=== PATIENT | female | born 1950 | race Caucasian/White ===

== ENCOUNTER → 2021-03-21 | Outpatient (REF) | payer MEDICARE, OTHER ==
[2021-03-21 13:06] LABS: GC DNA AMPLIFICATION NEGATIVE (NEGATIVE)
== END ==
LOC: M LAB REF 11:03
PROVIDERS: ATTEND Registered Nurse
DX: R10.2 Pelvic and perineal pain (principal)

== ENCOUNTER → 2021-04-07 | Outpatient (CLI) | payer MEDICARE, OTHER ==
--- NOTE | 2021-04-07 16:40 | REP ---
INDICATION: VAGINAL DISCHARGE, PELVIS PAIN COMPARISON: None. TECHNIQUE: Transabdominal pelvic ultrasound followed by transvaginal examination for better evaluation of the endometrium and adnexa. FINDINGS: Bladder is unremarkable and measures 7.9 x 4.0 x 7.8 cm. Normal anteverted uterus measures 7.2 x 2.5 x 3.9 cm. The endometrial complex measures 2.6 mm thickness. No discrete uterine or endometrial abnormalities are appreciated. Left ovary is not visualized. Right ovary appears normal and measures 1.6 x 1.9 x 1.1 cm. No pelvic fluid or adnexal mass lesion identified. IMPRESSION: Relatively normal uterus and normal presumed right ovary. No free fluid or obvious abnormality appreciated. <Electronically signed by Dylan Munoz > 04/07/21 [id number]
== END ==
LOC: M RAD 15:50
PROVIDERS: ATTEND Registered Nurse
DX: R10.2 Pelvic and perineal pain (principal)

== ENCOUNTER → 2022-03-16 | Outpatient (CLI) | payer MEDICARE, OTHER ==
[~2022-03-16] MED LIST: ASPI81CH33 PO; ATOR1TAB21 PO; CALC600T61 PO; ESTR10TA VG; FIBE625T PO; PROB250C PO; VITA-168 PO; VITMTA PO
== END ==
LOC: M LABSMTC 09:17
PROVIDERS: ATTEND Anesthesiology
DX: Z01.812 Encounter for preprocedural laboratory examination (principal)

== ENCOUNTER 2022-03-20 09:02 | Day surgery (SDC) | payer MEDICARE, OTHER ==
[~2022-03-20] VITALS: Ht 165.1 cm; Wt 81.4 kg
[~2022-03-20 09:02] MED LIST changes: +NS 1,000 ML IV ONE
[2022-03-20] MEDS ORDERED: propofoL 200 MG/20 ML VIAL As Ordered ONE ×2 (10:14→10:17)
[2022-03-20 10:55] VITALS: BP 107/55
== END 2022-03-20 11:10 | disposition home or self-care (01) ==
LOC: M OPP 09:02
PROVIDERS: ATTEND Internal Medicine Gastroenterology
DX: Z12.11 Encounter for screening for malignant neoplasm of colon (principal); Z86.010 Personal history of colon polyps; D12.2 Benign neoplasm of ascending colon; K63.5 Polyp of colon; K64.8 Other hemorrhoids; K57.30 Diverticulosis of large intestine without perforation or abscess without bleeding; Z79.02 Long term (current) use of antithrombotics/antiplatelets; Z79.82 Long term (current) use of aspirin; Z79.818 Long term (current) use of other agents affecting estrogen receptors and estrogen levels; I45.6 Pre-excitation syndrome; J44.9 Chronic obstructive pulmonary disease, unspecified; Z87.891 Personal history of nicotine dependence

== ENCOUNTER → 2022-11-08 | Outpatient (CLI) | payer MEDICARE, OTHER ==
[~2022-11-08] MED LIST changes: +ISOVUE-370 76% 100ML VIAL As Ordered ONE; -NS 1,000 ML IV ONE
== END ==
LOC: M RAD 07:59
PROVIDERS: ATTEND Internal Medicine
DX: R07.0 Pain in throat (principal)
CPT/HCPCS: 70491; Q9967

== ENCOUNTER → 2023-11-15 | Outpatient (REF) | payer MEDICARE, OTHER ==
[~2023-11-15] MED LIST changes: -ISOVUE-370 76% 100ML VIAL As Ordered ONE
[2023-11-20 13:39] LABS: PERCENT SATURATION 13.6 % (13.2-45.0)
[2023-11-20 13:42] LABS: FERRITIN 6.5 NG/ML (7.3-270.7)
== END ==
LOC: M LAB REF 12:52
PROVIDERS: ATTEND Internal Medicine
DX: D50.9 Iron deficiency anemia, unspecified (principal)

== ENCOUNTER 2024-01-31 10:11 | Day surgery (SDC) | payer MEDICARE, OTHER ==
[~2024-01-31] VITALS: Ht 165.1 cm; Wt 80.7 kg
[~2024-01-31 10:11] MED LIST changes: +DIPH-435 PO; +FERR324T2 PO; +LOSA25TA13 PO; +MM S100C PO
[2024-01-31] MEDS: NS 1,000 ML IV ONE (11:21)
[2024-01-31] MEDS ORDERED: LIDOCAINE 2% 100MG/5ML SDV (FOR ANES.) As Ordered ONE (12:24)
[2024-01-31] MEDS ORDERED: GLYCOPYRROLATE INJ 0.2 MG/ML 2 ML VIAL As Ordered ONE (12:24)
[2024-01-31] MEDS ORDERED: propofoL 200 MG/20 ML VIAL As Ordered ONE (12:25)
[2024-01-31] MEDS ORDERED: fentaNYL 100 MCG/2 ML INJECTION As Ordered ONE (12:26)
[2024-01-31] MEDS ORDERED: ONDANSETRON 4MG 2ML VIAL As Ordered ONE (12:43)
[2024-01-31 13:25] VITALS: TEMP 96.6
[2024-01-31 13:44] VITALS: BP 185/83; O2SAT 95
== END 2024-01-31 13:54 | disposition home or self-care (01) ==
LOC: M OPP 10:11
PROVIDERS: ATTEND Internal Medicine Gastroenterology
DX: D50.9 Iron deficiency anemia, unspecified (principal); K55.20 Angiodysplasia of colon without hemorrhage; K92.2 Gastrointestinal hemorrhage, unspecified; R19.5 Other fecal abnormalities; Z79.02 Long term (current) use of antithrombotics/antiplatelets; Z79.1 Long term (current) use of non-steroidal anti-inflammatories (NSAID); Z79.818 Long term (current) use of other agents affecting estrogen receptors and estrogen levels; Z79.899 Other long term (current) drug therapy; Z88.6 Allergy status to analgesic agent
CPT/HCPCS: 43239; 45382; 88305; J1596; J2405; J3010